=== PATIENT | male | born 1980 | race Caucasian/White ===

== ENCOUNTER 2017-10-23 14:09 | Emergency (ER) | payer OTHER ==
[~2017-10-23] VITALS: Ht 172.7 cm; Wt 81.7 kg
[~2017-10-23 14:09] MED LIST: PREDNISONE 20 M20 MG PO; TESSALON PERLE100 M1 PO; TRAZODONE HCL100 MG PO; VENTOLIN HFA 1818 GM INH
[2017-10-23] MEDS ORDERED: NORCO 5-325 TA1 EACH PO (15:19)
[2017-10-23] MEDS ORDERED: IBUPROFEN 800800 MG PO (15:19)
[2017-10-23 15:41] VITALS: BP 131/100
== END 2017-10-23 15:42 | disposition home or self-care (01) ==
LOC: M.ERS 14:09
DX: R07.81 Pleurodynia (principal); F32.9 Major depressive disorder, single episode, unspecified; F17.210 Nicotine dependence, cigarettes, uncomplicated

== ENCOUNTER 2019-07-05 08:09 | Emergency (ER) | payer OTHER ==
[~2019-07-05] VITALS: Ht 175.3 cm; Wt 86.2 kg
[~2019-07-05 08:09] MED LIST changes: +IBUPROFEN 800800 MG PO; +NORCO 5-325 TA1 EACH PO
[2019-07-05 08:38] VITALS: BP 142/90
[2019-07-05] MEDS ORDERED: FLEXERIL PO (08:38)
[2019-07-05] MEDS ORDERED: TRAMADOL 50 MG50 MG PO (08:38)
== END 2019-07-05 08:38 | disposition home or self-care (01) ==
LOC: M.ERS 08:09
DX: S46.812A Strain of other muscles, fascia and tendons at shoulder and upper arm level, left arm, initial encounter (principal); F17.210 Nicotine dependence, cigarettes, uncomplicated; X50.0XXA Overexertion from strenuous movement or load, initial encounter; Y93.89 Activity, other specified; Y92.89 Other specified places as the place of occurrence of the external cause; Y99.8 Other external cause status